=== PATIENT | male | born 1970 | race Caucasian/White ===

== ENCOUNTER 2016-09-22 10:45 | Emergency (ER) | payer OTHER ==
[~2016-09-22] VITALS: Ht 172.7 cm; Wt 91.7 kg
[~2016-09-22 10:45] MED LIST: ADVIL,NUPRIN,M200 MG PO; ALPRAZOLAM0.25 M2 PO; ARICEPT10 MG PO; DEPAKOTE500 MG PO; DILANTIN INFATA50 MG PO; DONEPEZIL HCL10 MG PO; PHENYTOIN SODI100 M1 PO; PRAVACHOL10 MG PO; ZETIA10 MG
[2016-09-22 11:37] LABS: EOSINOPHIL (%) 0.5 % (0-5); HEMATOCRIT 46.9 % (38.0-50.0); IMMATURE GRANULOCYTE (%) 0.5 % (0.0-0.7); INSTRUMENT ABS NEUTROPHIL CT 5.9 K/uL; MCV 91.6 FL (86-99); MONOCYTE COUNT 1.5 K/uL (0-0.8); NEUTROPHIL (%) 69.5 % (45-76); NEUTROPHIL COUNT 5.9 K/uL (1.8-6.4); PLATELET COUNT 190 K/uL (156-360); RBC DIS.WIDTH-CV 12.7 % (11.8-14.6); RBC DIS.WIDTH-SD 43.7 % (39-53); RED BLOOD COUNT 5.12 M/uL (4.00-5.50); WHITE BLOOD COUNT 8.6 K/uL (4.1-10.2)
[2016-09-22 11:46] LABS: CHLORIDE 106 mEq/L (99-109); POTASSIUM 4.8 mEq/L (3.7-5.4); SODIUM 141 mEq/L (136-147)
[2016-09-22 11:48] LABS: GLUCOSE 118 mg/dL (70-99)
[2016-09-22 11:50] LABS: ANION GAP 9 MEQ/L (2-14); TOTAL BILIRUBIN 0.5 mg/dL (0.0-1.0)
[2016-09-22 11:52] LABS: ALKALINE PHOSPHATASE 49 IU/L (3-129); GFR ESTIMATE (CALCULATED) > 59 mL/min/
[2016-09-22 11:53] LABS: UREA NITROGEN (BUN) 16 mg/dL (9-23)
[2016-09-22 14:46] LABS: LYME DISEASE SEROLOGY SCREEN NEGATIVE (NEGATIVE)
[2016-09-22] MEDS ORDERED: VALTREX1000 MG PO (14:56)
[2016-09-22] MEDS ORDERED: PREDNISONE20 MG PO (14:56)
[2016-09-22] MEDS ORDERED: NORCO 5/3251 TABLET PO (14:57)
[2016-09-22 15:12] VITALS: BP 129/77
== END 2016-09-22 15:27 | disposition home or self-care (01) ==
LOC: EME 10:45
PROVIDERS: Emergency Medicine
DX: G51.0 Bell's palsy (principal); H92.01 Otalgia, right ear; G35 Multiple sclerosis; Z87.891 Personal history of nicotine dependence
CPT/HCPCS: 70450; 70487; 80053; 80164; 80185; 83605; 85025; 86618; 99281; 99285; J1885; J2930; J7030